=== PATIENT | female | born 1965 | race Caucasian/White ===

== ENCOUNTER 2016-09-23 11:59 | Emergency (ER) | payer OTHER ==
[~2016-09-23] VITALS: Ht 162.6 cm; Wt 65.0 kg
[2016-09-23 12:03] VITALS: Ht 162.6 cm; Wt 65.0 kg
--- NOTE | 2016-09-23 12:53 | ERD ---
ER Documentation Chief Complaint Date/Time DATE: 09/23/16 TIME: 12:52 Chief Complaint Complains of neck pain and numbness that radiates to fingers and back HPI Since is a 51-year-old female who presents with 1 week of gradual onset, constant, sharp, moderate to severe left neck pain radiating down to the left shoulder and left arm with numbness and paresthesia at the left hand. Patient denies trauma, states that symptoms started after waking up. She thinks that she slept in a funny position. Patient has been taking ibuprofen without relief. The patient reports history of multiple pain issues in the past related to injuries for which she has been on narcotic medications and states that they have not helped her. ROS All systems reviewed and are negative except as per history of present illness. Medications Home Meds Active Scripts Methylprednisolone* (Medrol* DOSE PACK) 4 Mg/Dose-Pack Tab.ds.pk, 4 MG PO . 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 FmHx Family History: No coronary disease, No diabetes Physical Exam Vitals Vital Signs Date Time Temp Pulse Resp B/P Pulse Ox O2 Delivery O2 Flow Rate FiO2 09/23/16 12:03 97.3 107 20 132/88 99 Physical Exam Const: Alert, fidgety, appears in mild distress Head: Atraumatic Eyes: Normal Conjunctiva, no pallor, no icterus ENT: Normal External Ears, Nose and Mouth. Mucous membranes moist Neck: No midline tenderness. Restricted range of motion. No meningismus. Left paraspinal cervical muscle tenderness and spasm. Resp: Clear to auscultation bilaterally, no wheezes, no rales Cardio: Regular rate and rhythm, no murmurs Abd: Soft, non tender, non distended. Skin: No petechiae or rashes Back: No midline or flank tenderness, thoracic paraspinal muscle tenderness with spasm. Ext: No cyanosis, or edema Neur: Awake and alert, intermittent effort on strength testing in the left upper extremity. Best effort is full strength in radial, ulnar, median distribution. Sensation intact to light touch in all digits, slightly diminished to ulnar forearm. Psych: Normal Mood and Affect Results 24 hrs Current Medications Medications (Trade) Dose Ordered Sig/Suzette Route PRN Reason Start Time Stop Time Status Last Admin Dose Admin Cyclobenzaprine HCl (Flexeril) 10 mg ONCE ONCE PO 09/23/16 13:30 09/23/16 13:31 DC 09/23/16 13:40 Ketorolac Tromethamine (Toradol) 30 mg ONCE STAT IM 09/23/16 13:18 09/23/16 13:20 DC 09/23/16 13:40 Procedures/MDM EKG read by me: Time 1209, rate 105 Rhythm: Sinus tachycardia [place]: Normal Intervals: Normal ST-T waves: no ischemic changes Ectopy: No Q-waves: No Impression: Sinus tachycardia, otherwise normal MDM: Patient is a 51-year-old female who presents with 1 week of atraumatic left cervical paraspinal tenderness with radicular symptoms in the left arm. Patient is difficult to examine due to dramatization of pain and intermittent effort. Her behavior raises some suspicion for drug-seeking behavior, as well as her insistence that even stronger narcotics did not help her with pain. On best effort there is no weakness in the left arm, and there is only patchy sensory deficit in the forearm. Patient does have significant muscle spasm on exam. There is no midline tenderness. I will treat the patient with Flexeril and a Medrol Dosepak. I have advised her to stop taking ibuprofen due to risk of interaction with steroid. Advised to follow-up with her PMD in 2-3 days if symptoms are not improving. I will give sling for comfort. Departure Diagnosis: Primary Impression: Muscle spasm Additional Impression: Radiculopathy Spinal region: cervical Qualified Code: M54.12 - Cervical radiculopathy Condition: Stable JOSE GERMAN MD Sep 23, 2016 12:52
[2016-09-23] MEDS ORDERED: KETOROLAC 30 MG INJ IM STA (13:18)
[2016-09-23] MEDS ORDERED: CYCL-319 PO (13:20)
[2016-09-23] MEDS ORDERED: MED4DP PO (13:20)
[2016-09-23] MEDS ORDERED: CYCLOBENZAPRINE 10 MG TAB PO ONE (13:30)
[2016-09-23 13:51] VITALS: RESP 20; TEMP 97.3
== END 2016-09-23 14:51 | disposition home or self-care (01) ==
LOC: E/R 11:59
DX: M62.838 Other muscle spasm (principal); M54.12 Radiculopathy, cervical region; F17.210 Nicotine dependence, cigarettes, uncomplicated; Z85.72 Personal history of non-Hodgkin lymphomas
CPT/HCPCS: 93005; J1885; Z7610; 96372